=== PATIENT | male | born 1950 | race Caucasian/White ===

== ENCOUNTER 2017-03-14 11:23 | Emergency (ER) | payer MEDICARE, OTHER ==
[2017-03-14 11:33] VITALS: BP 141/81
[2017-03-14] MEDS ORDERED: TETRACAINE 0.5% OPHTH DROPS 4 ML RIGHTEYE ONE (12:02)
--- NOTE | 2017-03-14 13:36 | ED Physician Documentation ---
History of Present Illness - Stated complaint Stated Complaint: FOREIGN OBJ IN EYE - Chief complaint Chief Complaint: Heent - History obtained from History obtained from: Patient, Family - Additonal information Additional information: Patient is a 67-year-old man with a history of myopia who presents with left eye irritation, itching, burning and a foreign body sensation for 1 day. He has had mild nasal congestion otherwise no other ENT symptoms. Visual acuity is unchanged. There is no eye pain. He was working with [id number] yesterday and wonders if he sustained a foreign body. Review of systems: For pertinent positive and negatives in the review of systems please see the history of present illness, otherwise all other systems have been reviewed and are negative. Dragon disclaimer: Parts of this medical record were created using voice recognition technology. Because of the inherent limitations of this system, occasional same sounding word substitutions do occur and persist despite proofreading. Please read the document for context. Review of Systems Eyes: reports: Irritation. denies: Loss of vision, Decreased vision, Photophobia, Discharge Nose: reports: Rhinorrhea / runny nose PD PAST MEDICAL HISTORY - Past Medical History Past Medical History: Yes Cardiovascular: None Respiratory: None Neuro: None Endocrine/Autoimmune: None GI: None : Nocturia HEENT: None Psych: None Musculoskeletal: None Derm: None - Past Surgical History Past Surgical History: Yes Ortho: Other - Allergies Allergies/Adverse Reactions: Allergies Allergy/AdvReac Type Severity Reaction Status Date / Time No Known Drug Allergies Allergy Verified 03/14/17 11:33 - Social History Does the pt smoke?: No Smoking Status: Never smoker Does the pt drink ETOH?: Yes ETOH Use: Wine, Beer Does the pt have substance abuse?: No - Immunizations Immunizations are current?: Yes - POLST Patient has POLST: No PD ED PE NORMAL - Vitals Vital signs reviewed: Yes - General General: Alert and oriented X 3, No acute distress, Well developed/nourished - HEENT HEENT: Other (Mild scleral injection of the left eye, extraocular movements normal. No matting or discharge, anterior chamber clear, no obvious foreign body seen, lids everted and sweep-no foreign body found. Fluorescein staining no foreign body noticed however presence of SPK's seen. Funduscopic examination shows normal optic disc retinal vessels) Results - Vitals Vitals: Vital Signs - 24 hr 03/14/17 11:31 Temperature 36.1 C L Heart Rate 65 Respiratory 14 Rate Blood Pressure 141/81 H O2 Saturation 100 Oxygen O2 Source Nasal cannula PD MEDICAL DECISION MAKING - ED course Complexity details: reviewed old records, reviewed results, re-evaluated patient ED course: 67-year-old man with left-sided eye irritation and burning and foreign body sensation. It was carefully inspected using Coronel lamp and also a slit lamp. Other than very superficial punctate keratoses of the cornea see no obvious foreign body. Suspect he might of had a foreign body perhaps early viral infection and what he has now in part is a traumatic conjunctivitis from rubbing. I am recommending that he go to bed early tonight sleep avoid rubbing , and he may use artificial tears. I suspect he might start to feel better tomorrow. Given the nasal congestion I cannot rule out early viral conjunctivitis. We did talk about this possibility and also the necessity of handwashing. Disposition: To home new Clinical impression: 1. Left eye irritation without foreign body, SPK's on exam traumatic conjunctivitis versus early viral conjunctivitis Departure - Departure Disposition: 01 Home, Self Care Clinical Impression: Conjunctivitis Qualifiers: Conjunctivitis type: other Laterality: left Qualified Code(s): H10.89 - Other conjunctivitis Condition: Good Instructions: Conjunctivitis Irritation Cause
== END 2017-03-14 13:00 | disposition home or self-care (01) ==
LOC: ED 11:23
DX: H10.89 Other conjunctivitis (principal)
CPT/HCPCS: 99282; 99283

== ENCOUNTER 2019-09-14 08:16 | Day surgery (SDC) | payer MEDICARE, OTHER ==
[~2019-09-14 08:16] MED LIST: CYCLOPENTOLATE 1% OPHTH DROPS 2 ML ONE; KETOROLAC 0.45% OPHTH DROPS ONE; PHENYLEPHRINE 2.5% OPHTH 2 ML DROPS ONE; PROPARACAINE 0.5% OPHTH DROPS 15 ML ONE
[2019-09-14] MEDS ORDERED: PROPARACAINE 0.5% OPHTH DROPS 15 ML RIGHTEYE ONE ×2 (08:38→10:01)
[2019-09-14] MEDS ORDERED: PHENYLEPHRINE 2.5% OPHTH 2 ML DROPS RIGHTEYE ONE (08:38)
[2019-09-14] MEDS ORDERED: KETOROLAC 0.45% OPHTH DROPS RIGHTEYE ONE (08:38)
[2019-09-14] MEDS ORDERED: CYCLOPENTOLATE 1% OPHTH DROPS 2 ML RIGHTEYE ONE (08:38)
[2019-09-14] MEDS ORDERED: LACTATED RINGERS 500 ML IV ONE (08:47)
--- NOTE | 2019-09-14 09:14 | ANESTHESIA ---
Pre-Anesthesia VS, & Labs - Diagnosis R senile combined cataract - Procedure R extraction cataract w/IOL Vital Signs: Temp Pulse Resp BP Pulse Ox 36.3 C L 60 16 138/79 H 99 09/14/19 08:31 09/14/19 08:31 09/14/19 08:31 09/14/19 08:31 09/14/19 08:31 Height 5 ft 10 in Weight (kg) 78 kg Body Mass Index 27.7 - NPO Last Fluid Intake: 4oz black coffee @0615 Home Medications and Allergies Home Medications: Ambulatory Orders Fluticasone [Flonase] 1 puffs INH DAILY 09/13/19 Sildenafil Citrate [Sildenafil] 20 mg PO PRN PRN 09/13/19 Tamsulosin [Flomax] 0.4 mg PO DAILY 09/13/19 Fluticasone [Flonase] 1 puffs INH DAILY 09/13/19 Sildenafil Citrate [Sildenafil] 20 mg PO PRN PRN 09/13/19 Tamsulosin [Flomax] 0.4 mg PO DAILY 09/13/19 Allergies/Adverse Reactions: Allergies Allergy/AdvReac Type Severity Reaction Status Date / Time No Known Drug Allergies Allergy Verified 03/14/17 11:33 Anes History & Medical History - Anesthetic History Anesthesia Complications: reports: No previous complications Family history of Anesthesia Complications: Denies Family history of Malignant Hyperthermia: Denies - Medical History Cardiovascular: reports: None Pulmonary: reports: None, Sleep apnea, CPAP use Gastrointestinal: reports: None Urinary: reports: Nocturia Musculoskeletal: reports: None Endocrine/Autoimmune: reports: None Blood Disorders: reports: None Skin: reports: None Smoking Status: Never smoker - Surgical History Orthopedic: Amputation, Other Exam General: Alert, Oriented x3, Cooperative Dental: WNL Mouth Opening: Greater than 4 Fingerbreadths Neck Mobility: Normal Mallampati classification: I Thyromental Distance: greater than 6 cm Respiratory: Lungs clear, Normal breath sounds, No respiratory distress Cardiovascular: Regular rate Neurological: Normal speech Mental/Cognitive Status: Alert/Oriented X3, Normal for patient Cognitive Status: Within normal limits Plan Anesthesia Type: General (backup), MAC Consent for Procedure(s) Verified and Reviewed: Yes Code Status: Attempt Resuscitation ASA classification: 2-Mild systemic disease Is this case an emergency?: No
[2019-09-14] MEDS ORDERED: MIDAZOLAM 2 MG/2 ML VIAL IVP ONE (09:52)
[2019-09-14] MEDS ORDERED: BRIMONIDINE 0.2% OPHTH DROPS 5 ML OPTH ONE (09:59)
[2019-09-14] MEDS ORDERED: CHONDR SULF/HYALURONATE SYRINGE IO ONE (09:59)
[2019-09-14] MEDS ORDERED: EPINEPHrine 1 MG/ML AMP IVP ONE (09:59)
[2019-09-14] MEDS ORDERED: TIMOLOL 0.5% OPHTH DROPS OPTH ONE (10:00)
[2019-09-14] MEDS ORDERED: BSS/LIDOCAINE/EPINEPHRINE 1 ML SYRINGE IO ONE (10:00)
[2019-09-14] MEDS ORDERED: VANCOMYCIN OPHTHALMI 8MG/0.8ML 8 MG/0.8 ML SYRINGE IO ONE (10:01)
[2019-09-14] MEDS ORDERED: TRIAMCIN/MOXIFLOX OPHTHALMIC 0.6 ML VIAL IO ONE ×2 (10:01→14:55)
[2019-09-14 10:34] VITALS: BP 123/68
--- NOTE | 2019-09-14 12:29 | OPERATIVE REPORT ---
DATE OF SERVICE: 09/14/2019 Physician: Seven Foy MD PREOPERATIVE DIAGNOSIS: Visually significant cataract, right eye. This was his first cataract surge ry. POSTOPERATIVE DIAGNOSIS: Visually significant cataract, right eye. This was his first cataract surg any. DESCRIPTION OF PROCEDURE: Phacoemulsification with posterior chamber intraocular lens implant, right eye. SURGEON: Seven Foy MD ANESTHESIA: Monitored anesthesia care. COMPLICATIONS: None. OPERATIVE INDICATIONS: This is a 69-year-old man with progressive vision loss in the right eye due t o 1-2+ nuclear sclerotic, 2-3+ cortical and 2+ posterior subcapsular cataract. Best corrected visual acuity was 20/30, with glare to hand motion vision in the right eye. Indications for surgery were o verall decrease in vision, difficulty seeing words on a computer screen, difficulty reading, difficul ty seeing street signs, and difficulty driving at night because of headlights from other vehicles. Gagandeep rosenthal was consented at length concerning risks and benefits of cataract surgery, after which he expressed a desire to proceed with surgery. OPERATIVE PROCEDURE: The patient was taken to OR number 3 and placed under monitored anesthesia care . Surgical timeout was conducted confirming correct patient, correct procedure, and correct surgical site. He was given topical anesthesia and prepped and draped in the usual sterile fashion. The eye was entered at the 12 and 9 o'clock positions. Intracameral Shugarcaine was injected into the anter ior chamber, followed by Viscoat. A continuous-tear curvilinear capsulorrhexis was performed. The n ucleus was hydrodissected and phacoemulsified. The cortex was evacuated using automated infusion and aspiration. Provisc was injected in the capsular bag, and an 18.5 diopter intraocular lens inserted in the bag. Infusion and aspiration was used to evacuate the viscoelastic materials. The eye was i nflated to physiologic pressure using balanced salt solution and found to be watertight. Approximate ly 0.25 mL of a mixture of triamcinolone and moxifloxacin was injected trans sclerally into the vitre ous in the inferotemporal quadrant. An additional 0.55 mL of a mixture of triamcinolone, moxifloxaci n and vancomycin was injected subconjunctivally in the superior quadrant for infection and inflammati on prophylaxis. Wound integrity was checked with Weck-Fatou sponges. The patient was taken from the o perating room in good condition and given postoperative instructions. TD: 09/14/2019 10:34
[2019-09-14] MEDS ORDERED: BRIMONIDINE 0.2% OPHTH DROPS 5 ML ONE (14:54)
[2019-09-14] MEDS ORDERED: TIMOLOL 0.5% OPHTH DROPS ONE (14:54)
[2019-09-14] MEDS ORDERED: BSS/LIDOCAINE/EPINEPHRINE 1 ML SYRINGE ONE (14:55)
== END 2019-09-14 08:17 | disposition home or self-care (01) ==
LOC: SDS 08:16
PROVIDERS: ATTEND Ophthalmology
DX: H25.811 Combined forms of age-related cataract, right eye (principal); G47.30 Sleep apnea, unspecified
CPT/HCPCS: 66984; A9270; J3490; V2632

== ENCOUNTER 2019-10-05 06:40 | Day surgery (SDC) | payer MEDICARE, OTHER ==
[2019-10-05] MEDS ORDERED: MIDAZOLAM 2 MG/2 ML VIAL IVP ONE (06:41)
[2019-10-05] MEDS ORDERED: LACTATED RINGERS 500 ML IV ONE (06:56)
[2019-10-05] MEDS ORDERED: KETOROLAC 0.45% OPHTH DROPS LEFTEYE ONE (07:00)
[2019-10-05] MEDS ORDERED: PROPARACAINE 0.5% OPHTH DROPS 15 ML LEFTEYE ONE ×2 (07:00→08:30)
[2019-10-05] MEDS ORDERED: PHENYLEPHRINE 2.5% OPHTH 2 ML DROPS LEFTEYE ONE (07:00)
[2019-10-05] MEDS ORDERED: CYCLOPENTOLATE 1% OPHTH DROPS 2 ML LEFTEYE ONE (07:00)
--- NOTE | 2019-10-05 07:30 | ANESTHESIA ---
Pre-Anesthesia VS, & Labs - Diagnosis left eye cataract - Procedure left eye cataract removal Vital Signs: Temp Pulse Resp BP Pulse Ox 36.5 C 62 16 133/73 H 98 10/05/19 06:56 10/05/19 06:56 10/05/19 06:56 10/05/19 06:56 10/05/19 06:56 Height 5 ft 11 in Weight (kg) 78.6 kg Body Mass Index 27.7 - NPO >8 hours Home Medications and Allergies Fluticasone [Flonase] 1 puffs INH DAILY 09/13/19 Sildenafil Citrate [Sildenafil] 20 mg PO PRN PRN 09/13/19 Tamsulosin [Flomax] 0.4 mg PO DAILY 09/13/19 Allergies/Adverse Reactions: Allergies Allergy/AdvReac Type Severity Reaction Status Date / Time No Known Drug Allergies Allergy Verified 03/14/17 11:33 Anes History & Medical History - Anesthetic History Anesthesia Complications: reports: No previous complications Family history of Anesthesia Complications: Denies Family history of Malignant Hyperthermia: Denies - Medical History Cardiovascular: reports: None Pulmonary: reports: None, Sleep apnea, CPAP use Gastrointestinal: reports: None Urinary: reports: Nocturia Neuro: reports: None Musculoskeletal: reports: None Endocrine/Autoimmune: reports: None Blood Disorders: reports: None Skin: reports: None Smoking Status: Never smoker Psychosocial: reports: No issues indicated - Surgical History Eyes Ears Nose Throat (EENT): Cataracts Orthopedic: Amputation, Other Exam General: Alert, Oriented x3, Cooperative, No acute distress Dental: WNL Mouth Openin Fingerbreadth Neck Mobility: Normal Mallampati classification: II Thyromental Distance: 4-6 cm Respiratory: Lungs clear, Normal breath sounds, No respiratory distress, No accessory muscle use Cardiovascular: Regular rate, Normal S1, Normal S2, No murmurs Abdomen: Normal bowel sounds, Soft, No tenderness, No hepatospenomegaly, No masses Extremities: No clubbing, No cyanosis, No edema, Normal pulses, No tendern ess/swelling Neurological: Normal gait, Normal speech, Strength at 5/5 X4 ext, Normal tone, Sensation intact, Cranial nerves 3-12 NL, Reflexes 2+ Mental/Cognitive Status: Alert/Oriented X3, Normal for patient Cognitive Status: Within normal limits Plan Anesthesia Type: MAC Consent for Procedure(s) Verified and Reviewed: Yes Code Status: Attempt Resuscitation ASA classification: 1-Healthy patient Is this case an emergency?: No
[2019-10-05] MEDS ORDERED: BSS/LIDOCAINE/EPINEPHRINE 1 ML SYRINGE ONE (08:23)
[2019-10-05] MEDS ORDERED: BRIMONIDINE 0.2% OPHTH DROPS 5 ML ONE (08:23)
[2019-10-05] MEDS ORDERED: timoloL maleate 0.5% OPHTH DROPS (10ML) ONE (08:23)
[2019-10-05] MEDS ORDERED: VANCOMYCIN OPHTHALMI 8MG/0.8ML 8 MG/0.8 ML SYRINGE IO ONE ×2 (08:23→08:31)
[2019-10-05] MEDS ORDERED: TRIAMCIN/MOXIFLOX OPHTHALMIC 0.6 ML VIAL IO ONE ×2 (08:23→08:31)
[2019-10-05] MEDS ORDERED: CHONDR SULF/HYALURONATE SYRINGE IO ONE (08:29)
[2019-10-05] MEDS ORDERED: EPINEPHrine 1 MG/ML AMP IVP ONE (08:29)
[2019-10-05] MEDS ORDERED: BRIMONIDINE 0.2% OPHTH DROPS 5 ML OPTH ONE (08:29)
[2019-10-05] MEDS ORDERED: TIMOLOL 0.5% OPHTH DROPS OPTH ONE (08:30)
[2019-10-05] MEDS ORDERED: BSS/LIDOCAINE/EPINEPHRINE 1 ML SYRINGE IO ONE (08:30)
[2019-10-05 08:51] VITALS: BP 117/72
--- NOTE | 2019-10-05 09:15 | OPERATIVE REPORT ---
DATE OF SERVICE: 10/05/2019 Physician: Seven Foy MD PREOPERATIVE DIAGNOSIS: Visually significant cataract, left eye. Cataract surgery was performed on the right eye on 09/14/2019. POSTOPERATIVE DIAGNOSIS: Visually significant cataract, left eye. Cataract surgery was performed on the right eye on 09/14/2019. PROCEDURE: Phacoemulsification with posterior chamber intraocular lens implant, left eye. SURGEON: Seven Foy MD ANESTHESIA: Monitored anesthesia care. COMPLICATIONS: None. OPERATIVE INDICATIONS: This is a 69-year-old man with progressive vision loss in the left eye due to 1-2+ nuclear sclerotic and 1-2+ posterior subcapsular cataract. Best corrected visual acuity was 20 /20, with glare to 20/160 in the left eye. Indications for surgery are overall decrease in vision, d ifficulty seeing street signs, difficulty driving in low light or at night and difficulty driving at night because of headlights from other vehicles. He was consented at length concerning risks and lane efits of cataract surgery, after which he expressed a desire to proceed with surgery. OPERATIVE PROCEDURE: Patient was taken to OR #3 and placed under monitored anesthesia care. A surgi nraciso timeout was conducted confirming correct patient, correct procedure, and correct surgical site. He was given topical anesthesia, and prepped and draped in the usual sterile fashion. The eye was en tered at the 6 and 3 o'clock positions. Intracameral Shugarcaine was injected into the anterior rachel jasson, followed by Viscoat. A continuous-tear curvilinear capsulorrhexis was performed. Nucleus was h ydrodissected and phacoemulsified. The cortex was evacuated using automated infusion and aspiration. Provisc was injected in the capsular bag, and a 19.5 diopter intraocular lens was inserted into the bag. Infusion and aspiration was used to evacuate the viscoelastic materials. The eye was inflated to physiologic pressure using balanced salt solution and found to be watertight. Approximately 0.25 mL of a mixture of triamcinolone, moxifloxacin was injected transsclerally into the vitreous in the inferotemporal quadrant. An additional 0.55 mL of a mixture of triamcinolone, moxifloxacin and vanco mycin was injected subconjunctivally in the superior quadrant for infection and inflammation prophyla xis. Wound integrity was checked with Weck-Fatou sponges. Patient was taken from the operating room i n good condition and given postoperative instructions. TD: 10/05/2019 08:48
== END 2019-10-05 06:41 | disposition home or self-care (01) ==
LOC: SDS 06:40
PROVIDERS: ATTEND Ophthalmology
PROC: 08RK3JZ Replacement of Left Lens with Synthetic Substitute, Percutaneous Approach (ICD-10-PCS; principal; 2019-10-05 08:30)
DX: H25.812 Combined forms of age-related cataract, left eye (principal); G47.30 Sleep apnea, unspecified
CPT/HCPCS: 66984; A9270; J3490; V2632

== ENCOUNTER 2020-07-18 15:17 | Outpatient (CLI) | payer MEDICARE, OTHER ==
--- NOTE | 2020-07-18 16:30 | XRAY Report ---
PROCEDURE: Toe(s) LT INDICATIONS: PAIN IN LEFT TOE/5TH DIGIT DEFORMITY TECHNIQUE: 3 views of the toe(s) acquired. COMPARISON: None FINDINGS: Bones: No dislocations. No suspicious bony lesions. There is a diagonal fracture involving the di stal third of the fifth proximal phalanx, slightly displaced and angulated medially. Soft tissues: No suspicious soft tissue densities. IMPRESSION: Fifth proximal phalangeal fracture through the distal diaphysis, with mild angulation abnormality as a result. Mild medial deviation of the distal articular surface results. Reviewed by: Sadi Fuentes MD on 07/18/2020 4:29 PM PST Approved by: Sadi Fuentes MD on 07/18/2020 4:29 PM [facility] Station ID: [id number]
== END 2020-07-18 23:59 | disposition home or self-care (01) ==
LOC: DI.S 15:17
PROVIDERS: ATTEND Physician Assistant
DX: S92.512A Displaced fracture of proximal phalanx of left lesser toe(s), initial encounter for closed fracture (principal)